=== PATIENT | male | born 1950 | race Caucasian/White ===

== ENCOUNTER → 2016-07-21 | Outpatient (CLI) | payer MEDICARE, OTHER | LOC: LAB 15:05 | DX: N30.01 Acute cystitis with hematuria (principal); R35.0 Frequency of micturition ==

== ENCOUNTER 2017-06-05 22:44 | Emergency (ER) | payer MEDICARE, OTHER ==
[2017-06-05] MEDS ORDERED: PRILOSEC OTC20 MG PO (23:16)
[2017-06-05] MEDS ORDERED: SYNTHROID137 MCG PO (23:17)
[2017-06-05] MEDS ORDERED: NORVASC 10MG10 MG PO (23:17)
[2017-06-05 23:21] LABS: URINE APPEARANCE BLOODY; URINE COLOR YELLOW
[2017-06-05 23:22] LABS: URINE BILIRUBIN NEGATIVE (NEGATIVE); URINE BLOOD 250 ery/uL (NEGATIVE); URINE GLUCOSE NEGATIVE (NEGATIVE); URINE KETONE NEGATIVE (NEGATIVE); URINE LEUKOCYTE ESTERASE NEGATIVE (NEGATIVE); URINE NITRATE NEGATIVE (NEGATIVE); URINE PROTEIN(semi-quant) TRACE mg/dL (NEGATIVE); URINE UROBILINOGEN NORMAL (NORMAL)
[2017-06-05] MEDS ORDERED: CIPRO500 M1 PO (23:38)
[2017-06-05 23:41] VITALS: BP 161/84
== END 2017-06-05 23:41 | disposition home or self-care (01) ==
LOC: ED 22:44
PROVIDERS: Nurse Practitioner Primary Care
DX: R31.0 Gross hematuria (principal)

== ENCOUNTER → 2017-07-11 | Outpatient (CLI) | payer MEDICARE, OTHER ==
[~2017-07-11] MED LIST: CIPRO500 M1 PO; NORVASC 10MG10 MG PO; PRILOSEC OTC20 MG PO; SYNTHROID137 MCG PO
== END ==
LOC: RAD 09:52
DX: R31.0 Gross hematuria (principal); N40.0 Benign prostatic hyperplasia without lower urinary tract symptoms; R91.1 Solitary pulmonary nodule
CPT/HCPCS: Q9967

== ENCOUNTER → 2017-07-14 | Outpatient (CLI) | payer MEDICARE, OTHER | LOC: LAB 15:03 | DX: J06.9 Acute upper respiratory infection, unspecified (principal) ==

== ENCOUNTER → 2017-07-18 | Outpatient (CLI) | payer MEDICARE, OTHER ==
[2017-07-18 09:20] LABS: ALBUMIN 4.2 g/dL (3.5-5.0); BUN/CREATININE RATIO 13.7 (6.0-26.0); CALCIUM 8.4 mg/dL (8.4-10.2); POTASSIUM 3.9 mmol/L (3.6-5.0); TOTAL BILIRUBIN 0.4 mg/dL (0.2-1.3); TOTAL PROTEIN 7.6 g/dL (6.3-8.2)
[2017-07-18 09:24] LABS: HEMATOCRIT 49.5 % (42.0-52.0); HEMOGLOBIN 16.3 g/dL (13.5-18.0); RED BLOOD COUNT 5.71 M/mm3 (4.20-5.60); RED CELL DISTRIBUTION WIDTH 14.9 % (11.5-14.5); WHITE BLOOD COUNT 2.9 K/mm3 (4.8-10.8)
== END ==
LOC: LAB 08:42
PROVIDERS: Urology
DX: E66.9 Obesity, unspecified (principal); E03.4 Atrophy of thyroid (acquired); Z87.438 Personal history of other diseases of male genital organs; Z12.5 Encounter for screening for malignant neoplasm of prostate

== ENCOUNTER → 2017-08-24 | Outpatient (CLI) | payer MEDICARE, OTHER ==
[2017-08-24 15:07] LABS: HEMATOCRIT 50.5 % (42.0-52.0); HEMOGLOBIN 16.8 g/dL (13.5-18.0); MEAN CELL VOLUME 87 fl (78-100); MEAN CORPUSCULAR HEMOGLOBIN 29 pg (27-31); MEAN CORPUSCULAR HGB CONC 33 g/dL (33-37); MEAN PLATELET VOLUME 10.5 fl (7.4-10.4); PLATELET COUNT 183 K/mm3 (130-400); RED BLOOD COUNT 5.82 M/mm3 (4.20-5.60); RED CELL DISTRIBUTION WIDTH 15.2 % (11.5-14.5); WHITE BLOOD COUNT 6.2 K/mm3 (4.8-10.8)
[2017-08-24 15:08] LABS: LYMPHOCYTE 25 % (20-51); MONOCYTE 15 % (3-10); NEUTROPHILS 60 % (42-75)
== END ==
LOC: LAB 14:30
PROVIDERS: Nurse Practitioner Family
DX: Z00.00 Encounter for general adult medical examination without abnormal findings (principal); D72.819 Decreased white blood cell count, unspecified

== ENCOUNTER → 2017-09-25 | Outpatient (CLI) | payer MEDICARE, OTHER | LOC: RAD 14:17 | DX: M51.16 Intervertebral disc disorders with radiculopathy, lumbar region (principal); M25.78 Osteophyte, vertebrae ==

== ENCOUNTER → 2017-10-02 | Outpatient (CLI) | payer MEDICARE, OTHER | LOC: RAD 15:36 | DX: M51.26 Other intervertebral disc displacement, lumbar region (principal); M48.061 Spinal stenosis, lumbar region without neurogenic claudication; M46.96 Unspecified inflammatory spondylopathy, lumbar region; Z98.890 Other specified postprocedural states ==

== ENCOUNTER 2017-11-15 09:30 | Outpatient (RCR) | payer MEDICARE, OTHER | END 2017-11-15 10:00 | disposition home or self-care (01) | LOC: PT 09:30 | DX: M25.551 Pain in right hip (principal); M79.604 Pain in right leg | CPT/HCPCS: G8978-GP; G8979-GP ==

== ENCOUNTER → 2019-07-01 | Outpatient (CLI) | payer MEDICARE, OTHER ==
[2019-07-01 15:52] LABS: ALBUMIN 4.1 g/dL (3.4-4.8); POTASSIUM 3.6 mmol/L (3.5-5.1)
[2019-07-01 15:53] LABS: CALCIUM 8.8 mg/dL (8.3-10.5)
[2019-07-01 15:54] LABS: TOTAL PROTEIN 7.5 g/dL (6.2-8.1)
[2019-07-01 15:56] LABS: TOTAL BILIRUBIN 0.4 mg/dL (0.2-1.2)
== END ==
LOC: LAB 15:09
PROVIDERS: Family Medicine
DX: I10 Essential (primary) hypertension (principal); E03.9 Hypothyroidism, unspecified; R97.20 Elevated prostate specific antigen [PSA]; Z87.438 Personal history of other diseases of male genital organs

== ENCOUNTER → 2019-07-22 | Outpatient (CLI) | payer MEDICARE, OTHER ==
[2019-07-22 07:45] LABS: ALBUMIN 4.1 g/dL (3.4-4.8); POTASSIUM 3.8 mmol/L (3.5-5.1)
[2019-07-22 07:46] LABS: CALCIUM 8.9 mg/dL (8.3-10.5)
[2019-07-22 07:48] LABS: TOTAL PROTEIN 7.1 g/dL (6.2-8.1)
== END ==
LOC: LAB 07:16
PROVIDERS: Family Medicine
DX: I10 Essential (primary) hypertension (principal); R73.9 Hyperglycemia, unspecified; R94.5 Abnormal results of liver function studies

== ENCOUNTER → 2020-03-13 | Outpatient (CLI) | payer MEDICARE, OTHER | LOC: AMSURD 10:35 | DX: K75.9 Inflammatory liver disease, unspecified (principal); E78.5 Hyperlipidemia, unspecified ==

== ENCOUNTER → 2020-03-16 | Outpatient (CLI) | payer MEDICARE, OTHER ==
[2020-03-16 07:32] LABS: HEMATOCRIT 49.9 % (42.0-52.0); HEMOGLOBIN 16.7 g/dL (13.5-18.0); MEAN PLATELET VOLUME 10.8 fl (7.4-10.4); RED BLOOD COUNT 5.66 M/mm3 (4.20-5.60); RED CELL DISTRIBUTION WIDTH 14.1 % (11.5-14.5); WHITE BLOOD COUNT 4.7 K/mm3 (4.8-10.8)
[2020-03-16 07:36] LABS: ALBUMIN 4.1 g/dL (3.4-4.8); POTASSIUM 3.7 mmol/L (3.5-5.1)
[2020-03-16 07:37] LABS: CALCIUM 9.6 mg/dL (8.3-10.5)
[2020-03-16 07:39] LABS: TOTAL PROTEIN 7.1 g/dL (6.2-8.1)
[2020-03-16 07:40] LABS: TOTAL BILIRUBIN 0.9 mg/dL (0.2-1.2)
[2020-03-16 07:44] LABS: DIRECT BILIRUBIN 0.3 mg/dL (0.0-0.5)
== END ==
LOC: LAB 07:13 → AMSURD 07:13
PROVIDERS: Family Medicine
DX: Z00.00 Encounter for general adult medical examination without abnormal findings (principal); E78.2 Mixed hyperlipidemia; K57.90 Diverticulosis of intestine, part unspecified, without perforation or abscess without bleeding; I10 Essential (primary) hypertension; N40.0 Benign prostatic hyperplasia without lower urinary tract symptoms; K21.9 Gastro-esophageal reflux disease without esophagitis; E78.5 Hyperlipidemia, unspecified; K75.9 Inflammatory liver disease, unspecified

== ENCOUNTER → 2020-04-03 | Outpatient (CLI) | payer MEDICARE, OTHER | LOC: CARDREHAB 07:46 → CARDLAB 11:49 | DX: I10 Essential (primary) hypertension (principal); E78.5 Hyperlipidemia, unspecified | CPT/HCPCS: A9500 ==

== ENCOUNTER → 2020-08-22 | Outpatient (CLI) | payer MEDICARE, OTHER | LOC: LAB 09:52 | DX: R05 Cough (principal); Z20.822 Contact with and (suspected) exposure to COVID-19 ==

== ENCOUNTER → 2020-09-16 | Outpatient (CLI) | payer MEDICARE, OTHER ==
[2020-09-16 09:21] LABS: ALBUMIN 4.1 g/dL (3.4-4.8); POTASSIUM 3.6 mmol/L (3.5-5.1)
[2020-09-16 09:22] LABS: CALCIUM 8.8 mg/dL (8.3-10.5)
[2020-09-16 09:23] LABS: TOTAL PROTEIN 7.2 g/dL (6.2-8.1)
== END ==
LOC: LAB 08:36
PROVIDERS: Family Medicine
DX: I10 Essential (primary) hypertension (principal); N40.0 Benign prostatic hyperplasia without lower urinary tract symptoms; E03.4 Atrophy of thyroid (acquired); E78.2 Mixed hyperlipidemia

== ENCOUNTER → 2020-12-01 | Outpatient (CLI) | payer MEDICARE, OTHER | LOC: RAD 08:13 | DX: M19.012 Primary osteoarthritis, left shoulder (principal); S46.012A Strain of muscle(s) and tendon(s) of the rotator cuff of left shoulder, initial encounter ==

== ENCOUNTER 2020-12-15 10:56 | Outpatient (RCR) | payer MEDICARE, OTHER | END 2020-12-15 17:00 | LOC: PT 10:56 | DX: S46.012A Strain of muscle(s) and tendon(s) of the rotator cuff of left shoulder, initial encounter (principal) ==

== ENCOUNTER → 2021-04-06 | Outpatient (CLI) | payer MEDICARE, OTHER | LOC: LAB 10:09 | DX: R05.2 Subacute cough (principal); Z20.822 Contact with and (suspected) exposure to COVID-19 ==

== ENCOUNTER → 2021-04-19 | Outpatient (CLI) | payer MEDICARE, OTHER ==
[2021-04-19 14:55] LABS: HEMOGLOBIN 16.6 g/dL (13.5-18.0); MEAN PLATELET VOLUME 9.8 fl (7.4-10.4); RED BLOOD COUNT 5.63 M/mm3 (4.20-5.60); WHITE BLOOD COUNT 4.1 K/mm3 (4.8-10.8)
== END ==
LOC: LAB 14:45
PROVIDERS: Family Medicine
DX: R41.3 Other amnesia (principal)

== ENCOUNTER → 2021-12-17 | Outpatient (CLI) | payer MEDICARE, OTHER ==
[2021-12-17 08:44] LABS: POTASSIUM 3.8 mmol/L (3.5-5.1)
[2021-12-17 08:45] LABS: ALBUMIN 4.3 g/dL (3.4-4.8)
[2021-12-17 08:46] LABS: CALCIUM 9.2 mg/dL (8.3-10.5)
[2021-12-17 08:47] LABS: TOTAL PROTEIN 7.3 g/dL (6.2-8.1)
[2021-12-17 08:49] LABS: TOTAL BILIRUBIN 1.1 mg/dL (0.2-1.2)
== END ==
LOC: LAB 08:08
PROVIDERS: Family Medicine
DX: I10 Essential (primary) hypertension (principal); N40.0 Benign prostatic hyperplasia without lower urinary tract symptoms; E03.4 Atrophy of thyroid (acquired); E78.2 Mixed hyperlipidemia

== ENCOUNTER → 2022-08-17 | Outpatient (CLI) | payer MEDICARE, OTHER | LOC: RAD 09:49 | DX: J06.9 Acute upper respiratory infection, unspecified (principal); Z20.822 Contact with and (suspected) exposure to COVID-19 ==

== ENCOUNTER 2023-05-23 09:26 | Outpatient (RCR) | payer OTHER | END 2023-05-25 | disposition home or self-care (01) | LOC: PT | DX: S13.4XXD Sprain of ligaments of cervical spine, subsequent encounter (principal); X58.XXXD Exposure to other specified factors, subsequent encounter ==

== ENCOUNTER 2023-05-26 08:00 | Outpatient (RCR) | payer OTHER | END 2023-06-25 | disposition home or self-care (01) | LOC: PT | DX: S13.4XXD Sprain of ligaments of cervical spine, subsequent encounter (principal); X58.XXXD Exposure to other specified factors, subsequent encounter ==

== ENCOUNTER → 2023-05-26 | Outpatient (CLI) | payer OTHER | LOC: RAD 14:47 | DX: M51.36 Other intervertebral disc degeneration, lumbar region (principal) ==

== ENCOUNTER → 2024-07-19 | Outpatient (CLI) | payer MEDICARE, OTHER ==
[2024-07-19 14:05] LABS: CALCIUM 9.2 mg/dL (8.3-10.5)
== END ==
LOC: RAD 13:28
PROVIDERS: Family Medicine
DX: M19.042 Primary osteoarthritis, left hand (principal); M19.041 Primary osteoarthritis, right hand; I10 Essential (primary) hypertension; N40.0 Benign prostatic hyperplasia without lower urinary tract symptoms; E03.4 Atrophy of thyroid (acquired); E78.2 Mixed hyperlipidemia; E03.8 Other specified hypothyroidism